=== PATIENT | male | born 1960 | race African-American/Black ===

== ENCOUNTER 2022-10-08 19:13 | Emergency (ER) | payer BC ==
[~2022-10-08] VITALS: Ht 172.7 cm; Wt 105.0 kg
[2022-10-08 19:22] VITALS: BP 131/85
[2022-10-08] MEDS ORDERED: OXYMETAZOLINE HCL NASAL SPRAY 15ML BOTHNSTRLS SCH (19:45)
== END 2022-10-09 01:29 | disposition home or self-care (01) ==
LOC: ER 20:21
DX: R04.0 Epistaxis (principal); I10 Essential (primary) hypertension
CPT/HCPCS: 99283